=== PATIENT | male | born 1980 | race Caucasian/White ===

== ENCOUNTER 2020-06-19 14:02 | Outpatient (CLI) | payer OTHER ==
--- NOTE | 2020-06-19 17:04 | MRI Report ---
PROCEDURE: Shoulder RT W/O INDICATIONS: RIGHT SHOULDER PAIN TECHNIQUE: Noncontrast oblique coronal T2 fast spin echo with fat saturation, oblique sagittal T1 spin echo, axi al T1 spin echo and T2 fast spin echo with fat saturation through the shoulder. COMPARISON: None. FINDINGS: Image quality: There is motion artifact and heterogeneous fat saturation limiting evaluation. Sagitta l T2 sequence also erroneously performed in axial plane. Rotator cuff: The supraspinatus, infraspinatus, subscapularis, and teres minor appear intact. No rot ator cuff muscle atrophy on sagittal images. Bones and bursae: No bone marrow contusions or fractures. There is moderate to severe acromioclavicu lar joint degeneration with capsular hypertrophy and articular bone marrow edema including within the distal clavicle. The acromion demonstrates slight lateral downsloping, without an os acromiale. Tra ce subacromial/subdeltoid bursal fluid is present. Capsule and soft tissues: There is degenerative signal within the anteroinferior labrum. In the abse nce of intra-articular contrast, the glenohumeral ligaments appear intact. The long head of the reuben ps tendon demonstrates normal location and morphology. The rotator interval appears normal, without fibrosis. The coracohumeral ligament is normal in thickness. IMPRESSION: 1. 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 2. Slight lateral downsloping of the acromion. 3. Trace subacromial/subdeltoid bursal fluid. 4. Mild degenerative signal within the anteroinferior labrum. Reviewed by: Jef Mcintosh MD on 06/19/2020 4:03 PM [facility] Approved by: Jef Mcintosh MD on 06/19/2020 4:03 PM [facility] Station ID: [id number]
== END 2020-06-19 14:03 | disposition home or self-care (01) ==
LOC: DI 14:02
DX: M25.511 Pain in right shoulder (principal); M19.011 Primary osteoarthritis, right shoulder

== ENCOUNTER 2023-03-04 12:14 | Emergency (ER) | payer OTHER ==
[2023-03-04 12:59] LABS: BASOPHILS # (AUTO) 0.1 10^3/uL (0.0-0.1); EOSINOPHILS # (AUTO) 0.2 10^3/uL (0.0-0.7); EOSINOPHILS % (AUTO) 2.9 %; HCT - HEMATOCRIT 49.9 % (42.0-52.0); HGB - HEMOGLOBIN 16.2 g/dL (14.0-18.0); LYMPHOCYTES # (AUTO) 1.6 10^3/uL (1.5-3.5); LYMPHOCYTES % (AUTO) 27.6 %; MEAN CORPUSCULAR HEMOGLOBIN 29.5 pg (27.0-31.0); MEAN CORPUSCULAR HGB CONC 32.5 g/dL (32.0-36.0); MEAN CORPUSCULAR VOLUME 90.7 fL (80.0-94.0); MEAN PLATELET VOLUME 9.7 fL (7.4-11.4); MONOCYTES # (AUTO) 0.6 10^3/uL (0.0-1.0); MONOCYTES % (AUTO) 10.3 %; NEUTROPHILS # (AUTO) 3.4 10^3/uL (1.5-6.6); PLT - PLATELET COUNT 277 10^3/uL (130-450); RED CELL DISTRIBUTION WIDTH 11.8 % (12.0-15.0); WHITE BLOOD COUNT 5.9 x10^3/uL (4.8-10.8)
[2023-03-04 13:14] LABS: ALBUMIN 4.5 g/dL (3.2-5.5); ALBUMIN/GLOBULIN RATIO 1.7 (1.0-2.2); BILIRUBIN,TOTAL 0.6 mg/dL (0.2-1.0); CALCIUM 9.2 mg/dL (8.5-10.3); CREATININE 1.3 mg/dL (0.6-1.3); POTASSIUM 4.5 mmol/L (3.5-4.5); TOTAL PROTEIN 7.2 g/dL (6.4-8.9)
[2023-03-04 13:21] LABS: TROPONIN I HIGH SENSITIVITY 10.3 ng/L (2.3-19.7)
--- NOTE | 2023-03-04 13:51 | ED Physician Documentation ---
History of Present Illness - Stated complaint Stated Complaint: HEART PALPITATIONS - Chief complaint Chief Complaint: Cardiac - History obtained from History obtained from: Patient - Additonal information Additional information: This is a 42-year-old male who reports a past medical history of elevated blood pressure has not formally been diagnosed with hypertension and is not on any antihypertensives, who presents with shortness of breath and heart palpitations. Symptoms started today while patient was trying to do his regular morning workout. He felt somewhat sluggish, felt like he could not catch his breath while he was trying to do a cardio exercise. He slowed down and did complete that but did not feel at baseline. He then tried to do some weightlifting and continued to feel some heart palpitations and mild shortness of breath. He never had any chest pain, he denies any dizziness, nausea or vomiting, diaphoresis, no cough or URI symptoms, no fever or chills. He denies any abdom inal pain, no nausea vomiting or diarrhea. 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 He is living in hotels 10 to 11 days a month and frequently eating out or eating packaged foods and states he knows his diet has not been great recently. He also has been following his blood pressure and states for the last couple of years it has been above goal but he has not yet been started on any blood pressure medication. Patient does not smoke, he does drink alcohol occasionally though only about once a month though does drink heavily at that time and most recently did so 2 days ago. He does not not have any heart history to his knowledge, but states that his father does have atrial fibrillation though this developed in his 80s. Review of Systems Constitutional: reports: Reviewed and negative Ears: reports: Reviewed and negative Nose: reports: Reviewed and negative Throat: reports: Reviewed and negative Cardiac: reports: Palpitations. denies: Chest pain / pressure, Pedal edema, Calf pain Respiratory: reports: Dyspnea. denies: Cough, Hemoptysis, Wheezing GI: reports: Reviewed and negative : reports: Reviewed and negative Skin: reports: Reviewed and negative Musculoskeletal: reports: Reviewed and negative Neurologic: reports: Reviewed and negative Psychiatric: reports: Reviewed and negative Endocrine: reports: Reviewed and negative PD PAST MEDICAL HISTORY - Past Medical History Past Medical History: Yes Cardiovascular: None Respiratory: None Neuro: None Endocrine/Autoimmune: None GI: None : None HEENT: None Psych: None Derm: None - Past Surgical History Past Surgical History: Yes - Present Medications Home Medications: Ambulatory Orders Medication Instructions Recorded Confirmed Aspirin EC [Ecotrin] 81 mg PO DAILY #30 tablet 03/04/23 Metoprolol Tartrate [Lopressor] 12.5 mg PO BID #30 tablet 03/04/23 - Allergies Allergies/Adverse Reactions: Allergies Allergy/AdvReac Type Severity Reaction Status Date / Time No Known Drug Allergies Allergy Verified 03/04/23 12:19 - Social History Does the pt smoke?: No Smoking Status: Never smoker Does the pt drink ETOH?: No Does the pt have substance abuse?: No - Immunizations Immunizations are current?: Yes - POLST Patient has POLST: No PD ED PE NORMAL - Vitals Vital signs reviewed: Yes - General General: Alert and oriented X 3, No acute distress, Well developed/nourished - HEENT HEENT: Atraumatic, Moist mucous membranes - Neck Neck: Supple, no meningeal sign, No JVD - Cardiac Cardiac: No murmur, Strong equal pulses, Other (Irregular) - Respiratory Respiratory: No respiratory distress, Clear bilaterally - Abdomen Abdomen: Normal bowel sounds, Soft, Non tender, Non distended - Derm Derm: Normal color, Warm and dry, No rash - Extremities Extremities: No deformity, No tenderness to palpate, Normal ROM s pain, No edema, No calf tenderness / cord - Neuro Neuro: Alert and oriented X 3 Eye Opening: Spontaneous Motor: Obeys Commands Verbal: Oriented GCS Score: 15 - Psych Psych: Normal mood, Normal affect Results - Vitals Vitals: Vital Signs - 24 hr 03/04/23 03/04/23 03/04/23 12:19 12:54 12:59 Temperature 36.5 C Heart Rate 68 78 Respiratory 18 16 Rate Blood Pressure 166/110 H 152/96 H Blood Pressure 156/90 H [Left] O2 Saturation 99 98 03/04/23 03/04/23 03/04/23 13:29 14:59 15:15 Temperature 36.8 C Heart Rate 97 60 96 Respiratory 14 20 14 Rate Blood Pressure 154/115 H 126/79 141/93 H Blood Pressure [Left] O2 Saturation 97 98 98 Oxygen O2 Source Room air - EKG (time done) No standard instances EKG releavant findings:: EKG personally interpreted by author of this note. Relevant findings are: Rhythm: Atrial fibrillation QRS: Normal Ischemia: Normal ST segments Computer interpretation: Agree with computer - Labs Labs: Laboratory Tests 03/04/23 03/04/23 03/04/23 12:40 12:40 13:56 WBC 5.9 RBC 5.50 Hgb 16.2 Hct 49.9 MCV 90.7 MCH 29.5 MCHC 32.5 RDW 11.8 L Plt Count 277 MPV 9.7 Neut # (Auto) 3.4 Lymph # (Auto) 1.6 Grainger # (Auto) 0.6 Eos # (Auto) 0.2 Baso # (Auto) 0.1 Absolute Nucleated RBC 0.00 Nucleated RBC % 0.0 PT 11.7 INR 1.1 D-Dimer 222.1 Sodium 138 Potassium 4.5 Chloride 104 Carbon Dioxide 30 Anion Gap 4.0 L BUN 14 Creatinine 1.3 Estimated GFR (MDRD) 61 L Glucose 96 Calcium 9.2 Total Bilirubin 0.6 AST 139 H ALT 423 H Alkaline Phosphatase 40 L Troponin I High Sens 10.3 Total Protein 7.2 Albumin 4.5 Globulin 2.7 Albumin/Globulin Ratio 1.7 Lipase 23 03/04/23 13:56 WBC RBC Hgb Hct MCV MCH MCHC RDW Plt Count MPV Neut # (Auto) Lymph # (Auto) Grainger # (Auto) Eos # (Auto) Baso # (Auto) Absolute Nucleated RBC Nucleated RBC % PT INR D-Dimer Sodium Potassium Chloride Carbon Dioxide Anion Gap BUN Creatinine Estimated GFR (MDRD) Glucose Calcium Total Bilirubin AST ALT Alkaline Phosphatase Troponin I High Sens 11.5 Total Protein Albumin Globulin Albumin/Globulin Ratio Lipase - Rads (name of study) No standard instances Relevant Findings:: Final report received, See rad report PD Medical Decision Making - ED course Complexity details: reviewed results, re-evaluated patient, considered differential, d/w patient ED course: This is a 42-year-old male who presented with shortness of breath and heart palpitations as described in HPI. On arrival here, the patient is well- appearing and in no acute distress. Initial EKG reveals atrial fibrillation that is rate controlled. There are no acute ischemic changes. Patient was placed on a monitor and labs were collected. The monitor continued to show atrial fibrillation in the 60s. Blood pressure stable to mildly elevated. Labs were significant for stable electrolytes, stable CBC, high-sensitivity troponin x2 was within normal limits, D-dimer was negative. The patient's LFTs were mildly elevated in the 400s, bilirubin was normal, INR normal. Patient does have a history of some alcohol use though not regular and a high-fat and high processed food diet therefore it was suspected this is likely fatty liver. Ultrasound was obtained which showed mild fatty liver no other acute findings. Patient remained stable here in the ER with a rate controlled atrial fibrillation. Symptoms are mild and I do think stable for discharge home with outpatient follow-up with cardiology. I will place him on metoprolol for light BP control and potential rate control the patient's rate is well controlled here. I discussed with patient that he may be eligible for cardioversion, or rhythm control medication but I would like him to see the migratory farm hand first. His CHADS2 2 VASc score is 1 making him low to low moderate risk for stroke. I discussed with this patient and did offer him anticoagulation but he would like to wait for now and talk with his PCP and migratory farm hand about this. We will place him on a daily aspirin for now. The patient is to follow-up as soon as possible with cardiology and establish care with PCP. I did discuss with patient that he needs to report this diagnosis to his employer and likely should not fly until he receives medical clearance from cardiology and employer. Patient states understanding. I also discussed today modifications recommendations and encouraged him to completely avoid alcohol as this may be contributing. Departure - Departure Disposition: 01 Home, Self Care Clinical Impression: Atrial fibrillation, Hypertension Condition: Good Instructions: ED Paroxysmal Atrial Flutter Follow-Up: [facility] - Card [Provider Group] Prescriptions: Aspirin EC [Ecotrin] 81 mg PO DAILY #30 tablet Metoprolol Tartrate [Lopressor] 12.5 mg PO BID #30 tablet Comments: You will need to schedule an appointment with your primary doctor and cardiology as soon as possible for follow up. As we discussed, there are different options for treatment of atrial fibrillation including medications to control rate or rhythm, a procedure called ablation, and cardioversion among others. You can discuss with your migratory farm hand which option is best for you. Your risk of stroke is low to low-moderate. We discussed starting you on anticoagulation to reduce the risk of stroke however at this time you would like to wait and discuss with your PCP/migratory farm hand, which is appropriate. The reason you went into atrial fibrillation is not clear. Your cardiac enzymes are stable and it does not appear to be due to a heart attack. I would recommend stress reduction (where possible), avoiding alcohol or excess caffeine, and sticking to a heart healthy diet. It is very important you avoid binge drinking too, because this can trigger atrial fibrillation. Exercise is also important, but please wait to re- start your exercise regimen until you have seen the migratory farm hand. I am starting you on a medication called metoprolol which will help control your heart rate, and also provide a little bit of blood pressure management until you see cardiology. Your liver enzymes were elevated. The ultrasound showed mild fatty infiltration of the liver. Please try and work on a low fat and lower carb diet which will help with your blood pressure as well as your liver. Your liver enzymes should be rechecked in a couple of months. Please consult with your employers as this typically will preclude you from flying until more stable and cleared by migratory farm hand. Forms: PCP List Discharge Date/Time: 03/04/23 15:19
--- NOTE | 2023-03-04 14:03 | XRAY Report ---
PROCEDURE: Chest 1 View X-Ray INDICATIONS: Chest pain TECHNIQUE: One view of the chest was acquired. COMPARISON: None FINDINGS: Surgical changes and devices: None. Lungs and pleura: No pleural effusions or pneumothorax. Lungs are clear. Mediastinum: Mediastinal contours appear normal. Heart size is normal. Bones and chest wall: No suspicious bony lesions. Overlying soft tissues appear unremarkable. IMPRESSION: No acute cardiopulmonary findings Reviewed by: Tyson Loomis MD on 03/04/2023 1:02 PM [facility] Approved by: Tyson Loomis MD on 03/04/2023 1:02 PM [facility] Station ID: [id number]
[2023-03-04 14:14] LABS: INR 1.1 (0.8-1.2); PT - PROTHROMBIN TIME 11.7 secs (9.9-12.6)
[2023-03-04 14:21] LABS: D-DIMER 222.1 ng/mL (200.0-255.0)
[2023-03-04 15:18] VITALS: BP 141/93; O2SAT 98
--- NOTE | 2023-03-04 15:29 | Ultrasound Report ---
PROCEDURE: Abdomen Limited INDICATIONS: elevated LFTs, please do RUQ US TECHNIQUE: Ultrasound of the abdominal right upper quadrant was obtained with image documentation. COMPARISONS: None. FINDINGS: Liver: Hepatic parenchyma is diffusely decreased in attenuation without focal mass lesion. Gallbladder: Sonolucent without cholelithiasis. No gallbladder wall thickening. No pericholecystic fluid or Quarles's sign. Common Bile Duct: 3.9 mm. Pancreas: [Unremarkable as visualized.] Right Kidney: Appropriate in size and echotexture. No evidence of hydronephrosis. No shadowing calc gianfranco. No solid or cystic mass lesion. IMPRESSION: Unremarkable right upper quadrant ultrasound Reviewed by: Tyson Loomis MD on 03/04/2023 2:27 PM [facility] Approved by: Tyson Loomis MD on 03/04/2023 2:27 PM [facility] Station ID: [id number]
== END 2023-03-04 15:19 | disposition home or self-care (01) ==
LOC: ED 12:14
DX: I48.91 Unspecified atrial fibrillation (principal); I10 Essential (primary) hypertension
CPT/HCPCS: 36415; 80053; 83690; 84484; 85025; 85379; 85610; 93005; 99284